=== PATIENT | male | born 1960 | race Caucasian/White ===

== ENCOUNTER 2019-03-05 19:58 | Emergency (ER) | payer SELFPAY ==
[~2019-03-05 19:58] MED LIST: Acetaminophen/oxyCODONE 325-5 MG Tab ONE
[2019-03-05] MEDS ORDERED: Ondansetron 4 MG/2 ML SDV IVPUSH ONE (20:09)
[2019-03-05] MEDS ORDERED: Ketorolac 30 MG/ML SDV IVPUSH ONE (20:09)
--- NOTE | 2019-03-06 07:50 | ER ---
DATE OF SERVICE: 03/06/2019 HPI: A 58-year-old male who comes to the ER with complaints of acute-onset abdominal pain involving the left side. He states it started 2 or 3 hours before coming in. It came on suddenly. He states that he did vomit twice. He has not had any episodes of diarrhea. The patient states that his urine seems a little cloudy, but otherwise is okay. He has not had any dysuria or obvious hematuria symptoms. The patient has not been sick and has not been running a fever. He denies any recent injuries. The patient states he has been healthy and is not on any medications. OBJECTIVE: GENERAL APPEARANCE: The patient is awake and alert. He is uncomfortable due to the pain. He is diaphoretic. He rates his pain at 10/10. VITAL SIGNS: Reviewed. Blood pressure is initially 170/103, pulse 85, he is afebrile, respirations are 18, O2 sats 96%. LUNGS: Clear. There is no CVA tenderness with percussion. ABDOMEN: Soft. There is tenderness in the left lower quadrant radiating around to the left flank area, almost to the mid back area. There is no guarding with palpation. Bowel sounds are present, but hypoactive. SKIN: Again diaphoretic. INITIAL TREATMENT: An IV was started. The patient was given Toradol 30 mg IV and Zofran 4 mg IV. Within 10 minutes, he states that his pain is down about half and continued to improve. LAB AND X-RAY: CBC shows a normal white count. Neutrophils are slightly elevated at 70.1. Comprehensive metabolic panel shows a BUN of 20, creatinine 1.59, GFR is at 45, glucose 137. UA reveals cloudy character, large amount of occult blood and a slight amount of proteinuria. CT of the abdomen and pelvis reveals a 5.9 mm stone in the distal left ureter which is causing dilation of the left collection system, as well as swelling of the left kidney, and there is left perirenal stranding. An incidental note also shows sclerosis in the head of the left femur, possibly due to avascular necrosis. DIAGNOSIS: Renal stone. SECONDARY DIAGNOSIS: Left hip discrepancy noted on CT report. TREATMENT PLAN: I did consult with the hospitalist in [place], Dr. John, and he feels that, due to the fact that the patient is comfortable, his pain is well controlled, and he has no other medical history, a timely followup in the morning here in the clinic in [place] with a phone call to the Urology Clinic would be reasonable, and I agree. The patient will be sent home. His father is here to drive him home. I will give him Percocet 5/325, he can take 1 or 2 tablets every 4-6 hours. I advised the patient to take one tablet before leaving the ER. He is resting comfortably for the last 45 minutes or so. Some of the time he has been using his cellphone. His pain is minimal at this point in time. The patient is to call the clinic at 8 o'clock in the morning and inform them that he needs to be seen tomorrow morning for recheck kidney stone. They should also recheck a metabolic panel to monitor his GFR at that time as well. I will consult with the on-call physician tomorrow morning as well involving this patient's case. LIZ/SHANA /[id number]
--- NOTE | 2019-03-06 08:45 | CT ---
Date of Service: 03/05/19 Clinical Data: Acute Abd pain left side into groin. UNENHANCED ABDOMEN AND PELVIC CT: Multislice acquisition through the abdomen and pelvis without IV or oral contrast was performed. No priors. The lung bases are clear. The unenhanced liver appears normal. No focal hepatic lesions. The gallbladder appears normal. The spleen appears normal. 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 The pancreas appears normal. The right and left adrenals appear normal. There is a 5 mm distal ureteral calculus on the left located in the distal left ureter just proximal to the ureterovesical junction. There is hydronephrosis and hydroureter proximal to it consistent with obstruction. There is also mild perinephric fat stranding on the left most likely related to obstruction. The right kidney and collecting system appears normal. The bladder is partially fluid filled. It appears normal. No evidence of appendicitis. There is mild diverticulosis of the descending and sigmoid colon. No evidence of diverticulitis. No free air. No free fluid. No dilated loops of bowel. No adenopathy. No aortic aneurysm. There is a small umbilical hernia containing fat. There is a small right inguinal hernia containing fat. IMPRESSION: 5 mm distal ureteral calculus on the left with obstruction. Other findings as discussed above. [id number] [facility]
== END 2019-03-05 21:46 | disposition home or self-care (01) ==
LOC: LB.ED 19:58
DX: N13.2 Hydronephrosis with renal and ureteral calculous obstruction (principal); R93.89 Abnormal findings on diagnostic imaging of other specified body structures
CPT/HCPCS: 36415; 74176; 80053; 81001; 85025; 96374; 96375; 99284; A9270; J1885; J2405

== ENCOUNTER 2020-10-26 23:22 | Inpatient (IN) | payer MEDICAID ==
--- NOTE | 2020-10-27 00:06 | EDM.PDOC ---
ED HPI GENERAL MEDICAL PROBLEM - General Chief Complaint: Respiratory Problem Stated Complaint: COVID POSITIVE Time Seen by Provider: 10/27/20 00:00 Source of Information: Reports: Patient, EMS History Limitations: Reports: No Limitations - History of Present Illness INITIAL COMMENTS - FREE TEXT/NARRATIVE: patient presented to the ER by EMS due to worsening SOB. Patient was diagnosed with COVID at outside ER yesterday after a 1 week long of cough and SOB. He was sent home on an albuterol neb treatment. Reports that he tried the nebs twice but no improvement, SOB got worse over the last 24 hrs. + chills and fever. No CP., + cough and loss of taste and smell.. Ex smoker - quit a month ago. Borderline diabetic and obesity but not on meds. Upon arrival of the ER to his place, his sat was in low 80's,, and up to 90's after a neb treatment. - Related Data Allergies Allergy/AdvReac Type Severity Reaction Status Date / Time No Known Allergies Allergy Verified 03/05/19 20:24 Home Meds: Home Meds NK [No Known Home Meds] 03/05/19 [History] Social & Family History - Family History Family Medical History: No Pertinent Family History - Caffeine Use Caffeine Use: Reports: Coffee ED ROS GENERAL - Review of Systems Review Of Systems: See Below Constitutional: Reports: Fever, Chills, Malaise HEENT: Reports: No Symptoms Respiratory: Reports: Shortness of Breath, Cough Cardiovascular: Reports: No Symptoms GI/Abdominal: Reports: No Symptoms : Reports: No Symptoms Musculoskeletal: Reports: No Symptoms Skin: Reports: No Symptoms Neurological: Reports: No Symptoms Psychiatric: Reports: No Symptoms ED EXAM, GENERAL - Physical Exam Exam: See Below Exam Limited By: No Limitations General Appearance: Alert, WD/WN, No Apparent Distress Eye Exam: Bilateral Eye: EOMI Throat/Mouth: Normal Inspection Neck: Normal Inspection Respiratory/Chest: Chest Non-Tender, Respiratory Distress, Wheezing (b/l end exp), Accessory Muscle Use Cardiovascular: Normal Peripheral Pulses, Tachycardia GI/Abdominal: Normal Bowel Sounds, Soft, Non-Tender Extremities: Normal Inspection, Normal Range of Motion Neurological: Alert, Oriented, No Motor/Sensory Deficits Skin Exam: Warm, Dry Course - Vital Signs Last Recorded V/S: Last Vital Signs Temp 36.3 C 10/27/20 08:00 Pulse 90 10/27/20 08:00 Resp 30 H 10/27/20 08:00 BP 137/69 10/27/20 04:33 Pulse Ox 92 L 10/27/20 08:50 - Orders/Labs/Meds Orders: Active Orders 24 hr Category Date Time Status RT Aerosol Therapy [RC] ASDIRECTED Care 10/27/20 00:07 Active Acetaminophen [TylenoL] Med 10/27/20 00:20 Active 650 mg PO Q4H PRN Isolation [COMM] Routine Oth 10/27/20 00:43 Active Medication Orders Acetaminophen (Acetaminophen 325 Mg Tab) 650 mg PO Q4H PRN PRN Reason: Fever Last Admin: 10/27/20 00:39 Dose: 650 mg Documented by: JEANNETTE Sodium Chloride (Normal Saline) 1,000 mls @ 75 mls/hr IV ASDIRECTED KRISTYN Last Admin: 10/27/20 02:25 Dose: 75 mls/hr Documented by: SOFIA Labs: Laboratory Tests 10/27/20 10/27/20 10/27/20 Range/Units 00:40 00:40 00:40 WBC 10.5 D (4.0-11.0) K/uL RBC 4.53 (4.50-6.50) M/uL Hgb 14.5 (13.0-18.0) g/dL Hct 42.3 (40.0-54.0) % MCV 93 (76-96) fL MCH 32.0 (27.0-32.0) pg MCHC 34.3 (31.0-35.0) g/dL RDW 12.9 (11.0-16.0) % Plt Count 245 (150-400) K/uL MPV 9.0 (6.0-10.0) fL Neut % (Auto) 87.9 H (45.0-70.0) % Lymph % (Auto) 9.0 L (20.0-40.0) % [place] % (Auto) 3.0 (3.0-10.0) % Eos % (Auto) 0.1 L (1.0-5.0) % Baso % (Auto) 0.0 (0.0-0.5) % Neut # (Auto) 9.19 H (2.00-7.50) K/uL Lymph # (Auto) 0.94 L (1.50-4.00) K/uL [place] # (Auto) 0.31 (0.20-0.80) K/uL Eos # (Auto) 0.01 L (0.04-0.40) K/uL Baso # (Auto) 0.00 L (0.02-0.10) K/uL D-Dimer, Quantitative 608 H (0-400) ng/mL Sodium 136 (136-145) mmol/L Potassium 4.6 (3.5-5.1) mmol/L Chloride 100 (98-107) mmol/L Carbon Dioxide 25.5 (21.0-32.0) mmol/L Anion Gap 15.1 H (5.0-15.0) mmol/L BUN 28 H D (8-26) mg/dL Creatinine 1.38 H D (0.70-1.30) mg/dL Est Cr Clr Drug Dosing TNP Estimated GFR (MDRD) 53 L (>60) MLS/MIN BUN/Creatinine Ratio 20.3 (6-25) Glucose 153 H (74-100) mg/dL Calcium 8.7 (8.5-10.1) mg/dL Magnesium (1.8-2.4) mg/dL Total Bilirubin 0.3 (0.0-1.0) mg/dL AST 38 H (15-37) U/L ALT 42 (12-78) U/L Alkaline Phosphatase 63 (46-116) U/L Troponin I 0.026 (0.000-0.060) ng/mL B-Natriuretic Peptide 182 H (0-125) pg/mL Total Protein 7.6 (6.4-8.2) g/dL Albumin 2.9 L (3.4-5.0) g/dL Globulin 4.7 H (2.2-4.2) g/dL Albumin/Globulin Ratio 0.6 L (0.8-2.0) 10/27/20 Range/Units 00:40 WBC (4.0-11.0) K/uL RBC (4.50-6.50) M/uL Hgb (13.0-18.0) g/dL Hct (40.0-54.0) % MCV (76-96) fL MCH (27.0-32.0) pg MCHC (31.0-35.0) g/dL RDW (11.0-16.0) % Plt Count (150-400) K/uL MPV (6.0-10.0) fL Neut % (Auto) (45.0-70.0) % Lymph % (Auto) (20.0-40.0) % [place] % (Auto) (3.0-10.0) % Eos % (Auto) (1.0-5.0) % Baso % (Auto) (0.0-0.5) % Neut # (Auto) (2.00-7.50) K/uL Lymph # (Auto) (1.50-4.00) K/uL [place] # (Auto) (0.20-0.80) K/uL Eos # (Auto) (0.04-0.40) K/uL Baso # (Auto) (0.02-0.10) K/uL D-Dimer, Quantitative (0-400) ng/mL Sodium (136-145) mmol/L Potassium (3.5-5.1) mmol/L Chloride (98-107) mmol/L Carbon Dioxide (21.0-32.0) mmol/L Anion Gap (5.0-15.0) mmol/L BUN (8-26) mg/dL Creatinine (0.70-1.30) mg/dL Est Cr Clr Drug Dosing Estimated GFR (MDRD) (>60) MLS/MIN BUN/Creatinine Ratio (6-25) Glucose (74-100) mg/dL Calcium (8.5-10.1) mg/dL Magnesium 1.9 (1.8-2.4) mg/dL Total Bilirubin (0.0-1.0) mg/dL AST (15-37) U/L ALT (12-78) U/L Alkaline Phosphatase (46-116) U/L Troponin I (0.000-0.060) ng/mL B-Natriuretic Peptide (0-125) pg/mL Total Protein (6.4-8.2) g/dL Albumin (3.4-5.0) g/dL Globulin (2.2-4.2) g/dL Albumin/Globulin Ratio (0.8-2.0) Meds: Medications Generic Name Dose Route Start Last Admin Trade Name Tri PRN Reason Stop Dose Admin Acetaminophen 650 mg 10/27/20 00:20 10/27/20 00:39 Acetaminophen 325 Mg Tab PO 650 mg Q4H PRN Administration Fever Sodium Chloride 1,000 mls @ 75 mls/hr 10/27/20 02:25 10/27/20 02:25 Normal Saline IV 75 mls/hr ASDIRECTED KRISTYN Administration Discontinued Medications Generic Name Dose Route Start Last Admin Trade Name Tri PRN Reason Stop Dose Admin Albuterol 2.5 mg 10/27/20 01:14 10/27/20 01:35 Albuterol 0.083% 2.5 Mg/3 Ml Neb Soln NEB 10/27/20 01:15 2.5 mg ONETIME ONE Administration Albuterol/Ipratropium 3 ml 10/27/20 00:07 10/27/20 00:05 Albuterol/Ipratropium 3.0-0.5 Mg/3 Ml Neb Soln NEB 10/27/20 00:08 3 ml NOW STA Administration Albuterol/Ipratropium Confirm 10/27/20 08:37 Albuterol/Ipratropium 3.0-0.5 Mg/3 Ml Neb Soln Administered 10/27/20 08:38 Dose 3 ml .ROUTE .STK-MED ONE Dexamethasone 6 mg 10/27/20 01:46 10/27/20 02:00 Dexamethasone 4 Mg/Ml Sdv IVPUSH 10/27/20 01:47 6 mg ONETIME ONE Administration Remdesivir 200 mg/ Sodium 250 mls @ 250 mls/hr 10/27/20 00:40 10/27/20 01:10 Chloride IV 10/27/20 00:41 250 mls/hr ONETIME ONE Administration Lorazepam 0.5 mg 10/27/20 01:45 10/27/20 01:55 Lorazepam 2 Mg/Ml Sdv IVPUSH 10/27/20 01:46 0.5 mg ONETIME ONE Administration - Re-Assessments/Exams Free Text/Narrative Re-Assessment/Exam: patient was sating 90% on 15 lit O2 NR. multiple nebs were given including Duoneb and Albuterol labs were ordered CXR showed b/l pulmonary infiltrates Bipap was placed - setting EPA 16/ IPAP6, RR 16. patient O2 up to 97% on reports easier for him to breath. IV remdesiver was started 200mg Also dexamethasone 6mg IV given the critical nature of the patient -- decision to admit him to the ICU bed for further stabilization and continuation of treatment Departure - Departure Time of Disposition: 01:50 Disposition: Admitted As Inpatient 67 Condition: Critical Clinical Impression: Pneumonia due to COVID-19 virus, Acute respiratory failure due to COVID-19, Acute respiratory failure with hypoxia - Discharge Information *PRESCRIPTION DRUG MONITORING PROGRAM REVIEWED*: Not Applicable *COPY OF PRESCRIPTION DRUG MONITORING REPORT IN PATIENT LISA: Not Applicable Sepsis Event Note (ED) - Focused Exam Vital Signs: Vital Signs Temp Pulse Resp BP Pulse Ox Pulse Ox 10/27/20 00:00 90 L 10/26/20 23:59 38.4 C H 121 H 26 H 127/83 90 L 10/26/20 23:55 38.4 C H 121 H 16 127/83 90 L - Problem List & Annotations (1) Acute respiratory failure due to COVID-19 SNOMED Code(s): 230205744 Code(s): U07.1 - COVID-19; J96.00 - ACUTE RESPIRATORY FAILURE, UNSP W HYPOXIA OR HYPERCAPNIA Status: Acute Priority: High Current Visit: No (2) Acute respiratory failure with hypoxia SNOMED Code(s): 05111415, 013730561 Code(s): J96.01 - ACUTE RESPIRATORY FAILURE WITH HYPOXIA Status: Acute Priority: High Current Visit: No (3) Pneumonia due to COVID-19 virus SNOMED Code(s): 436403953082967156 Code(s): U07.1 - COVID-19; J12.82 - PNEUMONIA DUE TO CORONAVIRUS DISEASE 2019 Status: Acute Priority: High Current Visit: No - Problem List Review Problem List Initiated/Reviewed/Updated: Yes - My Orders Last 24 Hours: My Active Orders 10/27/20 00:07 RT Aerosol Therapy [RC] ASDIRECTED 10/27/20 00:20 Acetaminophen [TylenoL] 650 mg PO Q4H PRN 10/27/20 00:43 Isolation [COMM] Routine - Assessment/Plan Last 24 Hours: My Active Orders 10/27/20 00:07 RT Aerosol Therapy [RC] ASDIRECTED 10/27/20 00:20 Acetaminophen [TylenoL] 650 mg PO Q4H PRN 10/27/20 00:43 Isolation [COMM] Routine Plan: - aggressive nebs treatment - BiPAP - bed side monitor - IV remdesiver 100mg for 5 days - daily labs - daily dexamethasone 6mg IV or PO - DVT ppx - resume home meds
[2020-10-27] MEDS ORDERED: Albuterol/Ipratropium 3.0-0.5 MG/3 ML Neb Soln NEB STA (00:07)
[2020-10-27] MEDS ORDERED: Acetaminophen 325 MG Tab PO PRN (00:20)
[2020-10-27] MEDS ORDERED: REMDESIVIR 200 MG in Sodium Chloride 0.9% 250 ML IV ONE (00:40)
[2020-10-27] MEDS ORDERED: Albuterol 0.083% 2.5 MG/3 ML Neb Soln NEB ONE (01:14)
[2020-10-27] MEDS ORDERED: LORazepam 2 MG/ML SDV IVPUSH ONE (01:45)
[2020-10-27] MEDS ORDERED: Dexamethasone 4 MG/ML SDV IVPUSH ONE (01:46)
[2020-10-27] MEDS: Sodium Chloride 0.9% 1,000 ML IV SCH ×2 (02:25→23:27)
--- NOTE | 2020-10-27 08:21 | CR ---
Date of Service: 10/27/20 Clinical Data: SOB AP CHEST: No priors. The patient has taken a very poor inspiration. The heart appears enlarged. It is probably accentuated by the poor inspiration. The aorta is ectatic. The pulmonary vasculature appears prominent. This is also probably accentuated by the poor inspiration. The lungs appear clear. No pneumothorax. No pleural effusions. [id number] [facility]
[2020-10-27] MEDS ORDERED: Albuterol/Ipratropium 3.0-0.5 MG/3 ML Neb Soln ONE (08:37)
--- NOTE | 2020-10-27 09:06 | PCM.HP.2 ---
H&P History of Present Illness - General Date of Service: 10/27/20 Admit Problem/Dx: Admission Diagnosis/Problem Admission Diagnosis/Problem Pneumonia Source of Information: Patient History Limitations: Reports: No Limitations - History of Present Illness Initial Comments - Free Text/Narative: patient with COVID +ve pneumonia for 4-5 days. was admitted to the floor from the ER yesterday, due to worsening respiratory status and hypoxia. was found in 80% on RA - and improved after multiple nebs and Bipap. Reports fever, cough, and loss of sense of taste and smell. no PMHx beside obesity and prediabetes. Quit smoking a month ago, and denies vaping. - Related Data Allergies/Adverse Reactions: Allergies Allergy/AdvReac Type Severity Reaction Status Date / Time No Known Allergies Allergy Verified 03/05/19 20:24 Home Medications: Home Meds NK [No Known Home Meds] 03/05/19 [History] Past Medical History - Past Health History Medical/Surgical History: Denies Medical/Surgical History Endocrine/Metabolic History: Reports: Obesity/BMI 30+, Other (See Below) Other Endocrine/Metabolic History: pre-diabetic Social & Family History - Family History Family Medical History: No Pertinent Family History - Tobacco Use Tobacco Use Status *Q: Former Tobacco User Used Tobacco, but Quit: Yes Month/Year Tobacco Last Used: 09/2020 - Caffeine Use Caffeine Use: Reports: Coffee - Recreational Drug Use Recreational Drug Use: No H&P Review of Systems - Review of Systems: Review Of Systems: See Below General: Reports: Fever, Chills HEENT: Reports: No Symptoms Pulmonary: Reports: Shortness of Breath, Cough Cardiovascular: Reports: No Symptoms Gastrointestinal: Reports: No Symptoms Genitourinary: Reports: No Symptoms Musculoskeletal: Reports: No Symptoms Skin: Reports: No Symptoms Psychiatric: Reports: No Symptoms Neurological: Reports: No Symptoms Exam - Exam Exam: See Below - Vital Signs Vital Signs: Last Vital Signs Temp 36.3 C 10/27/20 08:00 Pulse 90 10/27/20 08:00 Resp 30 H 10/27/20 08:00 BP 137/69 10/27/20 04:33 Pulse Ox 92 L 10/27/20 08:50 Weight: 104.78 kg - Exam Quality Assessment: Supplemental Oxygen General: Alert, Oriented, Mild Distress HEENT: PERRLA, EOMI Lungs: Crackles Cardiovascular: Regular Rhythm, Tachycardia GI/Abdominal Exam: Normal Bowel Sounds, Soft, Non-Tender Extremities: Normal Inspection Neuro Extensive - Mental Status: Alert, Oriented x3, Normal Mood/Affect - Patient Data Lab Results Last 24 hrs: Laboratory Results - last 24 hr 10/27/20 10/27/20 10/27/20 Range/Units 00:40 00:40 00:40 WBC 10.5 D (4.0-11.0) K/uL RBC 4.53 (4.50-6.50) M/uL Hgb 14.5 (13.0-18.0) g/dL Hct 42.3 (40.0-54.0) % MCV 93 (76-96) fL MCH 32.0 (27.0-32.0) pg MCHC 34.3 (31.0-35.0) g/dL RDW 12.9 (11.0-16.0) % Plt Count 245 (150-400) K/uL MPV 9.0 (6.0-10.0) fL Neut % (Auto) 87.9 H (45.0-70.0) % Lymph % (Auto) 9.0 L (20.0-40.0) % [place] % (Auto) 3.0 (3.0-10.0) % Eos % (Auto) 0.1 L (1.0-5.0) % Baso % (Auto) 0.0 (0.0-0.5) % Neut # (Auto) 9.19 H (2.00-7.50) K/uL Lymph # (Auto) 0.94 L (1.50-4.00) K/uL [place] # (Auto) 0.31 (0.20-0.80) K/uL Eos # (Auto) 0.01 L (0.04-0.40) K/uL Baso # (Auto) 0.00 L (0.02-0.10) K/uL D-Dimer, Quantitative 608 H (0-400) ng/mL Sodium 136 (136-145) mmol/L Potassium 4.6 (3.5-5.1) mmol/L Chloride 100 (98-107) mmol/L Carbon Dioxide 25.5 (21.0-32.0) mmol/L Anion Gap 15.1 H (5.0-15.0) mmol/L BUN 28 H D (8-26) mg/dL Creatinine 1.38 H D (0.70-1.30) mg/dL Est Cr Clr Drug Dosing TNP Estimated GFR (MDRD) 53 L (>60) MLS/MIN BUN/Creatinine Ratio 20.3 (6-25) Glucose 153 H (74-100) mg/dL Calcium 8.7 (8.5-10.1) mg/dL Magnesium (1.8-2.4) mg/dL Total Bilirubin 0.3 (0.0-1.0) mg/dL AST 38 H (15-37) U/L ALT 42 (12-78) U/L Alkaline Phosphatase 63 (46-116) U/L Troponin I 0.026 (0.000-0.060) ng/mL B-Natriuretic Peptide 182 H (0-125) pg/mL Total Protein 7.6 (6.4-8.2) g/dL Albumin 2.9 L (3.4-5.0) g/dL Globulin 4.7 H (2.2-4.2) g/dL Albumin/Globulin Ratio 0.6 L (0.8-2.0) 10/27/20 Range/Units 00:40 WBC (4.0-11.0) K/uL RBC (4.50-6.50) M/uL Hgb (13.0-18.0) g/dL Hct (40.0-54.0) % MCV (76-96) fL MCH (27.0-32.0) pg MCHC (31.0-35.0) g/dL RDW (11.0-16.0) % Plt Count (150-400) K/uL MPV (6.0-10.0) fL Neut % (Auto) (45.0-70.0) % Lymph % (Auto) (20.0-40.0) % [place] % (Auto) (3.0-10.0) % Eos % (Auto) (1.0-5.0) % Baso % (Auto) (0.0-0.5) % Neut # (Auto) (2.00-7.50) K/uL Lymph # (Auto) (1.50-4.00) K/uL [place] # (Auto) (0.20-0.80) K/uL Eos # (Auto) (0.04-0.40) K/uL Baso # (Auto) (0.02-0.10) K/uL D-Dimer, Quantitative (0-400) ng/mL Sodium (136-145) mmol/L Potassium (3.5-5.1) mmol/L Chloride (98-107) mmol/L Carbon Dioxide (21.0-32.0) mmol/L Anion Gap (5.0-15.0) mmol/L BUN (8-26) mg/dL Creatinine (0.70-1.30) mg/dL Est Cr Clr Drug Dosing Estimated GFR (MDRD) (>60) MLS/MIN BUN/Creatinine Ratio (6-25) Glucose (74-100) mg/dL Calcium (8.5-10.1) mg/dL Magnesium 1.9 (1.8-2.4) mg/dL Total Bilirubin (0.0-1.0) mg/dL AST (15-37) U/L ALT (12-78) U/L Alkaline Phosphatase (46-116) U/L Troponin I (0.000-0.060) ng/mL B-Natriuretic Peptide (0-125) pg/mL Total Protein (6.4-8.2) g/dL Albumin (3.4-5.0) g/dL Globulin (2.2-4.2) g/dL Albumin/Globulin Ratio (0.8-2.0) Result Diagrams: 10/27/20 11:50 10/27/20 11:50 Imaging Impressions Last 24 hrs: CT with PE protocol - no e/o PE,, but significant b/l pulmonary ground glass opacities Sepsis Event Note - Evaluation Sepsis Screening Result: Sepsis Risk - Focused Exam Vital Signs: Vital Signs Temp Pulse Pulse Resp BP Pulse Ox Pulse Ox 10/27/20 08:50 92 L 10/27/20 08:00 36.3 C 90 30 H 90 L 10/27/20 04:33 36.7 C 107 H 24 H 137/69 94 L 10/27/20 02:01 37.5 C 111 H 93 L 10/27/20 00:00 10/26/20 23:59 38.4 C H 121 H 26 H 127/83 90 L 10/26/20 23:55 38.4 C H 121 H 16 127/83 90 L Pulse Ox 10/27/20 08:50 10/27/20 08:00 10/27/20 04:33 10/27/20 02:01 10/27/20 00:00 90 L 10/26/20 23:59 10/26/20 23:55 - Problem List (1) Acute respiratory failure due to COVID-19 SNOMED Code(s): 278981479 ICD Code: U07.1 - COVID-19; J96.00 - ACUTE RESPIRATORY FAILURE, UNSP W HYPOXIA OR HYPERCAPNIA Status: Acute Priority: High Current Visit: No (2) Acute respiratory failure with hypoxia SNOMED Code(s): 44657073, 111470216 ICD Code: J96.01 - ACUTE RESPIRATORY FAILURE WITH HYPOXIA Status: Acute Priority: High Current Visit: No (3) Pneumonia due to COVID-19 virus SNOMED Code(s): 599065670428383133 ICD Code: U07.1 - COVID-19; J12.82 - PNEUMONIA DUE TO CORONAVIRUS DISEASE 2019 Status: Acute Priority: High Current Visit: No Problem List Initiated/Reviewed/Updated: Yes Orders Last 24hrs: Active Orders 24 hr Category Date Time Status Patient Status Manage Transfer [TRANSFER] Routine ADT 10/27/20 01:53 Active BIPAP Adult [RT BiPAP/CPAP] [RC] 08,20 Care 10/27/20 01:56 Active Oxygen Therapy Adult [Oxygen Therapy] [RC] 0200 Care 10/27/20 02:00 Active Oxygen Therapy [RC] PRN Care 10/27/20 09:01 Active RT Aerosol Therapy [RC] ASDIRECTED Care 10/27/20 00:07 Active RT Aerosol Therapy [RC] ASDIRECTED Care 10/27/20 09:03 Active VTE/DVT Education [RC] Per Unit Routine Care 10/27/20 09:01 Active Vital Signs [RC] Q4H Care 10/27/20 09:01 Active Regular Diet [DIET] Diet 10/27/20 Breakfast Ordered CBC W/O DIFF,HEMOGRAM [HEME] Routine Lab 10/27/20 09:03 Ordered COMPREHENSIVE METABOLIC PN,CMP [CHEM] Routine Lab 10/27/20 09:03 Ordered CULTURE MRSA SURVEY [RM] Routine Lab 10/27/20 05:15 Received Acetaminophen [TylenoL] Med 10/27/20 00:20 Active 650 mg PO Q4H PRN Albuterol [Proventil Neb Soln] Med 10/27/20 09:15 Ordered 2.5 mg NEB Q6H Albuterol/Ipratropium [DuoNeb 3.0-0.5 MG/3 ML] Med 10/27/20 09:15 Ordered 3 ml NEB Q8H Heparin Sodium Med 10/27/20 09:15 Ordered 5,000 units SUBCUT Q8H Remdesivir 100 mg Med 10/27/20 15:00 Ordered Sodium Chloride 0.9% [Normal Saline] 100 ml IV Q24H Sodium Chloride 0.9% [Normal Saline] 1,000 ml Med 10/27/20 02:25 Active IV ASDIRECTED dexAMETHasone Med 10/27/20 18:00 Ordered 6 mg PO DAILY Isolation [COMM] Routine Oth 10/27/20 00:43 Active Resuscitation Status Routine Resus Stat 10/27/20 05:46 Ordered Medication Orders Acetaminophen (Acetaminophen 325 Mg Tab) 650 mg PO Q4H PRN PRN Reason: Fever Last Admin: 10/27/20 00:39 Dose: 650 mg Documented by: JEANNETTE Albuterol (Albuterol 0.083% 2.5 Mg/3 Ml Neb Soln) 2.5 mg NEB Q6H KRISTYN Albuterol/Ipratropium (Albuterol/Ipratropium 3.0-0.5 Mg/3 Ml Neb Soln) 3 ml NEB Q8H KRISTYN Dexamethasone (Dexamethasone 4 Mg Tab) 6 mg PO DAILY KRISTYN Heparin Sodium (Porcine) (Heparin Sodium 5,000 Units/Ml Vial) 5,000 units S UBCUT Q8H KRISTYN Sodium Chloride (Normal Saline) 1,000 mls @ 75 mls/hr IV ASDIRECTED KRISTYN Last Admin: 10/27/20 02:25 Dose: 75 mls/hr Documented by: SOFIA Remdesivir 100 mg/ Sodium (Chloride) 100 mls @ 100 mls/hr IV Q24H KRISTYN Stop: 10/30/20 15:59 Assessment/Plan Comment:: 1- COVID- pneumonia: bilateral - aggressive nebs treatment - CPAP 16 Fi02 60% to keep sat >92% - wean down as tolerated - IV remdesiver 200mg bolus on day 1 then 100mg for 4 days - daily dexamethasone 6mg IV or PO for 10 days or until d/c home 2- Acute Hypoxia: - O2 supplementations. 3- LUIS: probably dehydration. IVF @125ml/hr - DVT ppx heparin 5k TID - Resume home meds - Mortality Measure Prognosis:: Good
[2020-10-27] MEDS: Albuterol/Ipratropium 3.0-0.5 MG/3 ML Neb Soln NEB SCH ×2 (09:15→18:16)
[2020-10-27] MEDS: Albuterol 0.083% 2.5 MG/3 ML Neb Soln NEB SCH ×3 (10:15→20:59)
[2020-10-27] MEDS: Heparin Sodium 5,000 Units/ML Vial SUBCUT SCH ×2 (10:17→18:27)
[2020-10-27] MEDS: REMDESIVIR 100 MG in Sodium Chloride 0.9% 250 ML IV SCH (15:10)
[2020-10-27] MEDS ORDERED: Iodixanol 652 MG/ML 100 ML Bottle IV PRN (17:05)
[2020-10-27] MEDS ORDERED: Sodium Chloride 0.9% 50 ML SDV FLUSH SCH (17:15)
[2020-10-27] MEDS: Dexamethasone 4 MG Tab PO SCH (18:16)
[2020-10-27] MEDS: LORazepam 1 MG Tab PO PRN (18:28)
[2020-10-27] MEDS: Sodium Chloride 0.9% 10 ML Syringe FLUSH PRN (20:30)
[2020-10-28] MEDS: Albuterol/Ipratropium 3.0-0.5 MG/3 ML Neb Soln NEB SCH ×3 (00:34→17:11)
[2020-10-28] MEDS: Heparin Sodium 5,000 Units/ML Vial SUBCUT SCH ×3 (00:37→17:11)
[2020-10-28] MEDS: Albuterol 0.083% 2.5 MG/3 ML Neb Soln NEB SCH ×4 (03:42→21:24)
[2020-10-28] MEDS: Sodium Chloride 0.9% 1,000 ML IV SCH ×2 (06:19→17:06)
[2020-10-28] MEDS: Dexamethasone 4 MG Tab PO SCH (07:53)
--- NOTE | 2020-10-28 08:28 | CT ---
Date of Service: 10/27/20 Clinical Data: persistent hypoxia - COVID ENHANCED CHEST CT: Multislice acquisition through the chest with IV contrast was performed. No priors. There is suboptimal contrast opacification of the pulmonary arteries. There is also significant breathing motion artifact degrading study quality. No evidence of PE. No pneumothorax. No pleural effusions. No aortic aneurysm or dissection. There are extensive ground-glass opacities throughout both lungs. There are also scattered areas of consolidation. The findings are consistent with pneumonia. Congestive failure should also be considered. The heart size is within normal limits. No pericardial effusion. The proximal pulmonary arteries are prominent suggesting pulmonary hypertension. No hilar or mediastinal adenopathy. No other significant findings. [id number] MTDD
--- NOTE | 2020-10-28 12:20 | PN ---
DATE OF VISIT: 10/28/2020 HISTORY OF PRESENT ILLNESS: A 60-year-old male here as an inpatient, admitted with COVID a couple of days ago. The patient was diagnosed with pneumonia and hypoxia with acute respiratory distress secondary to COVID. He has been on Remdesivir as well as dexamethasone daily. Yesterday, he felt he was improving. He was started on BiPAP initially and that was switched over to a CPAP machine. He has been on a setting of 16 and this has kept his sats up in the upper 90s at rest. When the machine comes off for eating or a neb treatment, his sats will drop down into the low 70s quickly. The patient tells me today that he feels fine. He is not having any pain. His coughing has improved. He is sitting up in bed with the CPAP machine on. PHYSICAL EXAMINATION: VITAL SIGNS: This morning, blood pressure 140/83. He is afebrile, pulse 103, respirations 24, and O2 sats currently 94%. LUNGS: Clear with mild to moderately reduced air exchange throughout the lung ramachandran. I do not hear any rales, wheezes, or rhonchi. CARDIAC: Heart sounds distinct without murmurs. SKIN: Warm and dry. ASSESSMENT AND PLAN: The patient is slowly improving. We will reduce the CPAP setting from 16 to 14 to see how he does and try to slowly start weaning him down. He will continue getting all of his current medications and be monitored closely. CRS/MODL /[id number]
[2020-10-28] MEDS: REMDESIVIR 100 MG in Sodium Chloride 0.9% 250 ML IV SCH (14:38)
[2020-10-29] MEDS: Albuterol/Ipratropium 3.0-0.5 MG/3 ML Neb Soln NEB SCH ×3 (02:46→19:23)
[2020-10-29] MEDS: Heparin Sodium 5,000 Units/ML Vial SUBCUT SCH ×3 (02:46→21:30)
[2020-10-29] MEDS: Albuterol 0.083% 2.5 MG/3 ML Neb Soln NEB SCH ×4 (04:56→21:30)
[2020-10-29] MEDS: Sodium Chloride 0.9% 10 ML Syringe FLUSH PRN (08:00)
[2020-10-29] MEDS: Dexamethasone 4 MG Tab PO SCH (08:11)
--- NOTE | 2020-10-29 14:44 | PCM.PN ---
- General Info Date of Service: 10/29/20 Subjective Update: This is a 60yo M in the Covid unit with shortness of breath. He has been on a CPAP at 13cmHg and FiO2 at 80%. He notes he is feeling well and breathing ok. He notes he only feels short of breath with exertion or eating. He has been stable with fluctuating oxygen from 86-99% and lower when eating or getting up and moving. He denies any other issues. - Review of Systems General: Reports: No Symptoms HEENT: Reports: No Symptoms Pulmonary: Reports: Shortness of Breath Cardiovascular: Reports: Dyspnea on Exertion Gastrointestinal: Reports: No Symptoms Genitourinary: Reports: No Symptoms Musculoskeletal: Reports: No Symptoms Skin: Reports: No Symptoms Neurological: Reports: No Symptoms Psychiatric: Reports: No Symptoms - Patient Data Vitals - Most Recent: Last Vital Signs Temp 35.9 C L 10/29/20 12:00 Pulse 91 10/29/20 12:00 Resp 24 H 10/29/20 08:00 BP 163/93 H 10/29/20 12:00 Pulse Ox 91 L 10/29/20 12:00 Weight - Most Recent: 104.78 kg I&O - Last 24 Hours: Intake & Output 10/28/20 10/29/20 10/29/20 22:59 06:59 14:59 Intake Total 2200 1080 Output Total 1200 1400 Balance 1000 -320 Lab Results Last 24 Hours: Laboratory Results - last 24 hr 10/29/20 10/29/20 10/29/20 Range/Units 10:25 10:25 11:10 WBC 13.0 H (4.0-11.0) K/uL RBC 4.35 L (4.50-6.50) M/uL Hgb 14.0 (13.0-18.0) g/dL Hct 41.8 (40.0-54.0) % MCV 96 (76-96) fL MCH 32.2 H (27.0-32.0) pg MCHC 33.5 (31.0-35.0) g/dL RDW 13.7 (11.0-16.0) % Plt Count 359 D (150-400) K/uL MPV 8.8 (6.0-10.0) fL Neut % (Auto) 86.4 H (45.0-70.0) % Lymph % (Auto) 10.3 L (20.0-40.0) % Emanuel % (Auto) 3.1 (3.0-10.0) % Eos % (Auto) 0.1 L (1.0-5.0) % Baso % (Auto) 0.1 (0.0-0.5) % Neut # (Auto) 11.20 H (2.00-7.50) K/uL Lymph # (Auto) 1.33 L (1.50-4.00) K/uL Emanuel # (Auto) 0.40 (0.20-0.80) K/uL Eos # (Auto) 0.01 L (0.04-0.40) K/uL Baso # (Auto) 0.01 L (0.02-0.10) K/uL VBG pH 7.39 (7.31-7.41) Sodium 141 (136-145) mmol/L Potassium 4.5 (3.5-5.1) mmol/L Chloride 103 (98-107) mmol/L Carbon Dioxide 25.7 (21.0-32.0) mmol/L Anion Gap 16.8 H (5.0-15.0) mmol/L BUN 22 (8-26) mg/dL Creatinine 1.17 D (0.70-1.30) mg/dL Est Cr Clr Drug Dosing 72.40 mL/min Estimated GFR (MDRD) > 60 (>60) MLS/MIN BUN/Creatinine Ratio 18.8 (6-25) Glucose 196 H (74-100) mg/dL Calcium 8.5 (8.5-10.1) mg/dL Total Bilirubin 0.4 D (0.0-1.0) mg/dL AST 33 (15-37) U/L ALT 36 (12-78) U/L Alkaline Phosphatase 103 (46-116) U/L Total Protein 7.3 (6.4-8.2) g/dL Albumin 2.5 L (3.4-5.0) g/dL Globulin 4.8 H (2.2-4.2) g/dL Albumin/Globulin Ratio 0.5 L (0.8-2.0) Matt Results Last 24 Hours: Microbiology 10/27/20 05:15 MRSA Surveillance Culture - Final Nares, Left NO MRSA ISOLATED Med Orders - Current: Current Medications Acetaminophen (Acetaminophen 325 Mg Tab) 650 mg PO Q4H PRN PRN Reason: Fever Last Admin: 10/27/20 00:39 Dose: 650 mg Documented by: Albuterol (Albuterol 0.083% 2.5 Mg/3 Ml Neb Soln) 2.5 mg NEB Q6H KRISTYN Last Admin: 10/29/20 08:27 Dose: 2.5 mg Documented by: Albuterol/Ipratropium (Albuterol/Ipratropium 3.0-0.5 Mg/3 Ml Neb Soln) 3 ml NEB Q8H KRISTYN Last Admin: 10/29/20 10:03 Dose: 3 ml Documented by: Dexamethasone (Dexamethasone 4 Mg Tab) 6 mg PO DAILY [facility] Last Admin: 10/29/20 08:11 Dose: 6 mg Documented by: Heparin Sodium (Porcine) (Heparin Sodium 5,000 Units/Ml Vial) 5,000 units SUBCUT Q8H KRISTYN Last Admin: 10/29/20 08:24 Dose: 5,000 units Documented by: Sodium Chloride (Normal Saline) 1,000 mls @ 0 mls/hr IV ASDIRECTED KRISTYN Last Admin: 10/28/20 17:06 Dose: 30 mls/hr Documented by: Remdesivir 100 mg/ Sodium (Chloride) 250 mls @ 250 mls/hr IV Q24H [facility] Stop: 10/30/20 15:59 Last Admin: 10/28/20 14:38 Dose: 250 mls/hr Documented by: Lorazepam (Lorazepam 1 Mg Tab) 1 mg PO Q8H PRN PRN Reason: Anxiety Last Admin: 10/27/20 18:28 Dose: 1 mg Documented by: Sodium Chloride (Sodium Chloride 0.9% 50 Ml Sdv) 50 ml FLUSH ONETIME KRISTYN Last Admin: 10/27/20 17:30 Dose: 80 ml Documented by: Sodium Chloride (Sodium Chloride 0.9% 10 Ml Syringe) 10 ml FLUSH ASDIRECTED PRN PRN Reason: Keep Vein Open Last Admin: 10/29/20 08:00 Dose: 10 ml Documented by: Discontinued Medications Albuterol (Albuterol 0.083% 2.5 Mg/3 Ml Neb Soln) 2.5 mg NEB ONETIME ONE Stop: 10/27/20 01:15 Last Admin: 10/27/20 01:35 Dose: 2.5 mg Documented by: Albuterol/Ipratropium (Albuterol/Ipratropium 3.0-0.5 Mg/3 Ml Neb Soln) 3 ml NEB NOW STA Stop: 10/27/20 00:08 Last Admin: 10/27/20 00:05 Dose: 3 ml Documented by: Albuterol/Ipratropium (Albuterol/Ipratropium 3.0-0.5 Mg/3 Ml Neb Soln) Confirm Administered Dose 3 ml .ROUTE .STK-MED ONE Stop: 10/27/20 08:38 Last Admin: 10/27/20 09:55 Dose: Not Given Documented by: Dexamethasone (Dexamethasone 4 Mg/Ml Sdv) 6 mg IVPUSH ONETIME ONE Stop: 10/27/20 01:47 Last Admin: 10/27/20 02:00 Dose: 6 mg Documented by: Remdesivir 200 mg/ Sodium (Chloride) 250 mls @ 250 mls/hr IV ONETIME ONE Stop: 10/27/20 00:41 Last Admin: 10/27/20 01:10 Dose: 250 mls/hr Documented by: Iodixanol (Iodixanol 652 Mg/Ml 100 Ml Bottle) 100 ml IV . DIRECTED PRN PRN Reason: RADIOLOGY EXAM Stop: 10/28/20 17:06 Last Admin: 10/27/20 17:30 Dose: 100 ml Documented by: Lorazepam (Lorazepam 2 Mg/Ml Sdv) 0.5 mg IVPUSH ONETIME ONE Stop: 10/27/20 01:46 Last Admin: 10/27/20 01:55 Dose: 0.5 mg Documented by: - Exam General: Alert, Oriented, Cooperative HEENT: Pupils Equal, Pupils Reactive, EOMI Neck: Supple Lungs: Normal Respiratory Effort, Decreased Breath Sounds Cardiovascular: Regular Rate, Regular Rhythm GI/Abdominal Exam: Normal Bowel Sounds, Soft, Non-Tender Back Exam: Normal Inspection Extremities: Normal Inspection Peripheral Pulses: 2+: Dorsalis Pedis (L), Dorsalis Pedis (R) Skin: Warm, Dry, Intact Neurological: No New Focal Deficit Psy/Mental Status: Alert, Normal Affect, Normal Mood - Patient Data Lab Results Last 24 hrs: Laboratory Results - last 24 hr 0610/29/20 10/29/20 Range/Units 10:25 10:25 11:10 WBC 13.0 H (4.0-11.0) K/uL RBC 4.35 L (4.50-6.50) M/uL Hgb 14.0 (13.0-18.0) g/dL Hct 41.8 (40.0-54.0) % MCV 96 (76-96) fL MCH 32.2 H (27.0-32.0) pg MCHC 33.5 (31.0-35.0) g/dL RDW 13.7 (11.0-16.0) % Plt Count 359 D (150-400) K/uL MPV 8.8 (6.0-10.0) fL Neut % (Auto) 86.4 H (45.0-70.0) % Lymph % (Auto) 10.3 L (20.0-40.0) % Emanuel % (Auto) 3.1 (3.0-10.0) % Eos % (Auto) 0.1 L (1.0-5.0) % Baso % (Auto) 0.1 (0.0-0.5) % Neut # (Auto) 11.20 H (2.00-7.50) K/uL Lymph # (Auto) 1.33 L (1.50-4.00) K/uL Emanuel # (Auto) 0.40 (0.20-0.80) K/uL Eos # (Auto) 0.01 L (0.04-0.40) K/uL Baso # (Auto) 0.01 L (0.02-0.10) K/uL VBG pH 7.39 (7.31-7.41) Sodium 141 (136-145) mmol/L Potassium 4.5 (3.5-5.1) mmol/L Chloride 103 (98-107) mmol/L Carbon Dioxide 25.7 (21.0-32.0) mmol/L Anion Gap 16.8 H (5.0-15.0) mmol/L BUN 22 (8-26) mg/dL Creatinine 1.17 D (0.70-1.30) mg/dL Est Cr Clr Drug Dosing 72.40 mL/min Estimated GFR (MDRD) > 60 (>60) MLS/MIN BUN/Creatinine Ratio 18.8 (6-25) Glucose 196 H (74-100) mg/dL Calcium 8.5 (8.5-10.1) mg/dL Total Bilirubin 0.4 D (0.0-1.0) mg/dL AST 33 (15-37) U/L ALT 36 (12-78) U/L Alkaline Phosphatase 103 (46-116) U/L Total Protein 7.3 (6.4-8.2) g/dL Albumin 2.5 L (3.4-5.0) g/dL Globulin 4.8 H (2.2-4.2) g/dL Albumin/Globulin Ratio 0.5 L (0.8-2.0) Result Diagrams: 10/29/20 10:25 10/29/20 11:10 Matt Results Last 24 hrs: Microbiology 10/27/20 05:15 MRSA Surveillance Culture - Final Nares, Left NO MRSA ISOLATED Sepsis Event Note - Evaluation Sepsis Screening Result: Sepsis Risk - Focused Exam Vital Signs: Vital Signs Temp Temp Pulse Pulse Resp BP Pulse Ox 10/29/20 12:00 35.9 C L 91 163/93 H 91 L 10/29/20 08:00 36.5 C 86 24 H 138/83 92 L 10/29/20 07:49 10/29/20 04:00 36.7 C 93 24 H 147/85 H 90 L Pulse Ox 10/29/20 12:00 10/29/20 08:00 10/29/20 07:49 93 L 10/29/20 04:00 - Problem List & Annotations (1) Acute respiratory failure due to COVID-19 SNOMED Code(s): 460531315 Code(s): U07.1 - COVID-19; J96.00 - ACUTE RESPIRATORY FAILURE, UNSP W HYPOXIA OR HYPERCAPNIA Status: Acute Priority: High Current Visit: Yes (2) Pneumonia due to COVID-19 virus SNOMED Code(s): 910608968752237658 Code(s): U07.1 - COVID-19; J12.82 - PNEUMONIA DUE TO CORONAVIRUS DISEASE 2019 Status: Acute Priority: High Current Visit: Yes - Problem List Review Problem List Initiated/Reviewed/Updated: Yes - My Orders Last 24 Hours: My Active Orders 10/29/20 12:00 CULTURE SPUTUM + SMEAR [RM] Routine - Plan Plan:: 1- COVID- pneumonia: bilateral - aggressive nebs treatment - CPAP 16 Fi02 60% to keep sat >92% - wean down as tolerated - IV remdesiver 200mg bolus on day 1 then 100mg for 4 days - daily dexamethasone 6mg IV or PO for 10 days or until d/c home 2- Acute Hypoxia: - O2 supplementations. 3- LUIS: probably dehydration. IVF @125ml/hr - DVT ppx heparin 5k TID - Resume home meds 10/29/20 1-Covid Pneumonia - bilateral - Continue neb treatment - CPAP 13FiO2 80% due to worsening saturation last night - will restart wean as tolerated - Finish IV remdesivir - Complete Dexamethasone 2-Acute hypoxia - Continue with oxygen as directed and adjustment with FiO2 as needed 3-LUIS - f/u BMP as needed - Stable Continue DVT prophylaxis.
[2020-10-29] MEDS: REMDESIVIR 100 MG in Sodium Chloride 0.9% 250 ML IV SCH (15:15)
[2020-10-29] MEDS: Sodium Chloride 0.9% 1,000 ML IV SCH (18:17)
[2020-10-30] MEDS: LORazepam 1 MG Tab PO PRN (00:40)
[2020-10-30] MEDS: Albuterol/Ipratropium 3.0-0.5 MG/3 ML Neb Soln NEB SCH ×2 (01:12→12:18)
[2020-10-30] MEDS: Albuterol 0.083% 2.5 MG/3 ML Neb Soln NEB SCH ×2 (03:00→12:18)
[2020-10-30] MEDS: Heparin Sodium 5,000 Units/ML Vial SUBCUT SCH ×2 (03:15→10:40)
[2020-10-30] MEDS: Dexamethasone 4 MG Tab PO SCH (10:40)
[2020-10-30] MEDS: Sodium Chloride 0.9% 10 ML Syringe FLUSH PRN (10:41)
[2020-10-30] MEDS ORDERED: cefTRIAXone 2 GM in Sodium Chloride 0.9% 100 ML IV ONE (12:21)
[2020-10-30] MEDS ORDERED: Levofloxacin/Dextrose 5%-Water 750 MG in Levofloxacin/Dextrose 5%-Water 150 ML IV ONE (12:23)
[2020-10-30] MEDS ORDERED: Furosemide 100 MG/10 ML SDV ONE (12:32)
[2020-10-30] MEDS ORDERED: Furosemide 40 MG/4 ML VIAL IVPUSH ONE (12:57)
--- NOTE | 2020-10-30 14:38 | DISCH ---
ADMISSION DIAGNOSIS: Coronavirus disease 2019 pneumonia. DISCHARGE DIAGNOSIS: Coronavirus disease 2019 pneumonia. HOSPITAL COURSE: This 60-year-old man was admitted by Dr. Dickerson on 10/27/2020 with worsening symptoms of COVID pneumonia. He had an 8-day history prior to that of increasing cough, shortness of breath, and fever. As a comorbidity, he does have obesity and possibly borderline diabetes. He was seen in the emergency department on the day before his admission here and diagnosed with COVID-19. He was given nebulizer treatments and sent home. His symptoms worsened overnight and he visited the emergency room here, where he was evaluated by Dr. Dickerson. O2 sats on arrival here were in the low 80s and up to the 90s after nebulizer treatment. On the day of admission, he underwent a CT scan. His chest x- ray showed what appeared to be diffuse infiltrates, but it was a portable film. He did undergo a CT scan to assess this as well as to rule out pulmonary embolism. Pulmonary emboli were ruled out, but he did have some infiltrative changes as well as ground-glass opacities consistent with COVID-19 pneumonia. He has not had any chest pain through all of this. His creatinine initially on admission was elevated at 1.37. He did have a mild leukocytosis. His electrolytes were normal. He was admitted and treated with IV dexamethasone and remdesivir and this will be his 4th day of both modalities. He did not receive any antibiotics. He was placed initially on a BiPAP mask on 80% O2 and that was quickly converted over to a CPAP mask with an FiO2 of 80% and a pressure setting of 13. He has remained at this since his admission and was tolerating this well. He did not show much improvement nor did he worsen at all for the 1st 3 days. Overnight, however, it appeared that he would desaturate more whenever his mask was removed and he would get more symptomatic shortness of breath. For this reason, his case was discussed with the hospitalist, the hand cutter apprentice, Dr. Echols of [facility]. Initially, I called [place] and spoke to the hospitalist who felt that it would be better for the patient to be transferred where they had hand cutter apprentice available, which was not the case in [place]. PHYSICAL EXAMINATION: GENERAL: Prior to transfer, he was alert and talkative, appeared to be somewhat anxious. CHEST: His work of breathing seemed to be more labored than what was reported from yesterday. His chest was clear, but he seemed to have diminished air exchange bilaterally. There was no wheezing present. ABDOMEN: Soft. EXTREMITIES: He had trace ankle edema, but he was perfusing well with no signs of cyanosis. Dr. Echols agreed to accept him in transfer. After discussion, we decided to give him Lasix and he was given 80 mg of Lasix IV, and we started him on Levaquin 750 mg IV x1 and Rocephin 2 g IV in light of the signs of consolidation or infiltrates on his CT scan as well as his respiratory status. SH/MODL /[id number]
--- NOTE | 2020-10-30 15:05 | DISCH ---
ADMISSION DIAGNOSIS: Coronavirus disease 2019 pneumonia. DISCHARGE DIAGNOSIS: Coronavirus disease 2019 pneumonia. HISTORY: This 60-year-old man was admitted to the hospital here on 10/27/2020 with COVID-19 pneumonia. He had a 1-week history of COVID-19 symptoms prior to his admission. On the day before, he was seen in the another emergency room with cough, shortness of breath, and fever. He was diagnosed with COVID-19 at that time. He was sent home on nebulizers and his symptoms worsened overnight, prompting his return to the ER here in [place]. He was seen by Dr. Dickerson and admitted. For comorbidities, he does have definite obesity and "borderline" diabetes. He has no history of cardiac disease or pulmonary disease, although did have a history of smoking up until approximately 1 month prior to this admission. He was on no medications prior to this admission. When he was seen in the emergency department here, he had O2 sats that were running in the 80s according to Dr. Dickerson's note. One treatment with DuoNeb prompted his return into the 90s. A CT scan was performed, which did not show any evidence of pulmonary embolus, but did disclose typical ground-glass opacities, typical of COVID-19 pneumonia. He did have some areas of early consolidation on the CT scan. His labs showed that he had a mild leukocytosis of 11,000. His electrolytes were normal, but his creatinine was elevated at 1.37. His BUN was 28, it currently is 22. His creatinine has gone from 1.37 to 1.17. His electrolytes have remained normal. A D-dimer was done on admission, it was elevated at 608. His BNP was 182 on admission. He does not have any transaminase elevations. His glucose was 153 on admission and was 196 yesterday. HOSPITAL COURSE: On admission, he was treated with nebulizer treatments and placed on a BiPAP and later a CPAP mask. His FiO2 was 80% and his pressure setting is currently 13, which it has been all along. He managed to maintain adequate O2 saturations, but whenever he has had to remove his mask, he quickly desaturates sometimes down into the 70s. Overnight, he had 1 episode where he removed his mask briefly and his O2 sats fell into the 50s. Nursing reports that he has had some increased labor of respirations. His current respiratory rate is 24. In addition to DuoNeb treatments, he has been started on remdesivir and dexamethasone. This will be his 4th day on both of these drugs. Prior to transfer, he was given 80 mg of Lasix IV. After conferring with Dr. Echols, the assembler wire group from [facility] in [place], who agreed to accept him in transfer. He is also given Levaquin 750 mg IV and Rocephin 2 g IV. Because of his failure to improve and possible worsening symptoms, it was agreed that he should be transferred. I did discuss with Dr. Echols, the pros and cons of intubation, and in light of the natural history of COVID and intubated patients, we elected not to intubate him at this time prior to transfer. The patient initially had been reluctant to be transferred according to Dr. Gorman, who signed off to me on this gentleman last evening. This morning, however, he is agreeable to transfer. He is aware of the risks inherent in transfer and accepts this. All questions were answered. The patient will be transferred by air this afternoon. CHARMAINE/SHANA /[id number]
== END 2020-10-30 14:30 | disposition home or self-care (01) | DRG 177 ==
LOC: LB.ED 23:22 → LB.MS 10-27 01:53 → UNDOADMIN 10-27 02:00
PROVIDERS: ADMIT Surgery; ATTEND Surgery
PROC: 5A09457 Assistance with Respiratory Ventilation, 24-96 Consecutive Hours, Continuous Positive Airway Pressure (ICD-10-PCS; principal; 2020-10-27)
PROC: XW033E5 Introduction of Remdesivir Anti-infective into Peripheral Vein, Percutaneous Approach, New Technology Group 5 (ICD-10-PCS; 2020-10-27)
DX: U07.1 COVID-19 (principal); J12.82 Pneumonia due to coronavirus disease 2019; J96.01 Acute respiratory failure with hypoxia; N17.9 Acute kidney failure, unspecified; E66.9 Obesity, unspecified; Z87.891 Personal history of nicotine dependence; R73.03 Prediabetes
CPT/HCPCS: 36415; 71045; 71260; 80053; 82800; 83735; 83880; 84484; 85025; 85027; 85379; 87070; 87205; 94660; 99285-25; A0425; A0429; A9270-GY; J0696; J1100; J1644; J1940; J1956; J2060; J7030; J7050; J7620-GY; J8540